=== PATIENT | male | born 1965 | race Caucasian/White ===

== ENCOUNTER 2020-08-05 11:00 | Outpatient (CLI) | payer OTHER ==
--- NOTE | 2020-08-05 11:48 | RAD ---
2 VIEW CHEST: Date: 08/05/2020 INDICATION: Dyspnea. COMPARISON: Portable chest of 06/29/2020. FINDINGS: The lungs appear clear and unchanged. No infiltrate or vascular congestion. Heart and mediastinum unr emarkable. Osseous structures unremarkable. IMPRESSION: No acute finding or interval change noted. POS: AH
== END 2020-08-05 11:01 | disposition home or self-care (01) ==
LOC: BICRAD 11:00
PROVIDERS: ATTEND Internal Medicine Pulmonary Disease
DX: R06.00 Dyspnea, unspecified (principal)
CPT/HCPCS: 71046

== ENCOUNTER 2020-09-08 12:36 | Outpatient (CLI) | payer OTHER ==
--- NOTE | 2020-09-08 13:05 | RAD ---
EXAM: Chest PA and lateral: HISTORY: Dyspnea COMPARISON: 08/05/2020 FINDINGS: Lung mo are clear. Vascular markings are normal. Heart and mediastinum appear unremarkable. Osseous structures are unremarkable. IMPRESSION: Unremarkable chest
== END 2020-09-08 12:37 | disposition home or self-care (01) ==
LOC: BICRAD 12:36
PROVIDERS: ATTEND Internal Medicine Pulmonary Disease
DX: R06.00 Dyspnea, unspecified (principal)
CPT/HCPCS: 71046

== ENCOUNTER 2022-01-06 06:59 | Day surgery (SDC) | payer OTHER ==
[2021-12-31 13:57] VITALS: BMI 35.3
[2022-01-06] MEDS ORDERED: Sodium Chloride 0.9% 100 ML ONE (07:35)
[2022-01-06] MEDS ORDERED: Tranexamic Acid 1,000 MG/10 ML VIAL ONE (07:35)
[2022-01-06] MEDS ORDERED: Vancomycin 1.5 GRAM/300 ML BAG 1.5 GM in Premix Bag 1 BAG IVPB SCH (07:45)
[2022-01-06] MEDS ORDERED: ceFAZolin 2 GM/Dextrose 50 ML IVPB ONE (07:47)
[2022-01-06] MEDS ORDERED: Fentanyl 100 MCG/2 ML VIAL ONE ×2 (07:48→11:33)
[2022-01-06] MEDS ORDERED: Midazolam HCl 2 mg/2 ml Vial ONE (07:48)
[2022-01-06] MEDS ORDERED: Fentanyl 100 MCG/2 ML VIAL SLOW IVP PRN (08:56)
[2022-01-06] MEDS ORDERED: HYDROcodone/Acetaminophen 10/325 mg Tablet PO PRN ×2 (09:00)
[2022-01-06] MEDS ORDERED: Promethazine HCl 25 MG/ML VIAL IM PRN (09:00)
[2022-01-06] MEDS ORDERED: Zolpidem Tartrate 5 MG TAB PO PRN (09:00)
[2022-01-06] MEDS ORDERED: traMADol HCl 50 MG TAB PO PRN ×2 (09:00)
[2022-01-06] MEDS ORDERED: Ondansetron PF 4 MG/2 ML Vial IVP PRN (09:00)
[2022-01-06] MEDS ORDERED: Ropivacaine 0.2% 550 ML 550 ML NERVE BLCK SCH (09:00)
[2022-01-06] MEDS ORDERED: SUGAMMADEX SODIUM 200 MG/2 ML VIAL ONE (10:05)
[2022-01-06] MEDS ORDERED: Ketorolac Tromethamine 30 MG/ML VIAL IVP SCH (12:00)
[2022-01-06] MEDS ORDERED: HYDROcodone/Acetaminophen 5/325 mg Tablet ONE (12:02)
== END 2022-01-06 13:50 | disposition home or self-care (01) ==
LOC: SDC 06:59
PROVIDERS: ATTEND Orthopaedic Surgery
PROC: 0LS40ZZ Reposition Left Upper Arm Tendon, Open Approach (ICD-10-PCS; principal; 2022-01-06)
PROC: 0RRK0JZ Replacement of Left Shoulder Joint with Synthetic Substitute, Open Approach (ICD-10-PCS; principal; 2022-01-06)
DX: M19.012 Primary osteoarthritis, left shoulder (principal); M25.712 Osteophyte, left shoulder; I10 Essential (primary) hypertension; G89.29 Other chronic pain; M54.9 Dorsalgia, unspecified; E78.5 Hyperlipidemia, unspecified; G47.30 Sleep apnea, unspecified; Z79.82 Long term (current) use of aspirin; Z79.899 Other long term (current) drug therapy; Z87.891 Personal history of nicotine dependence
CPT/HCPCS: A4306; C1713; C1776; J0690; J2250; J2795; J3010; J3370; J3490